=== PATIENT | male | born 1965 | race Caucasian/White ===

== ENCOUNTER 2021-10-09 17:28 | Inpatient (IN) ==
[2021-10-09] MEDS ORDERED: 0.9 % Sodium Chloride 1,000 ML IVC ONE (18:08)
[2021-10-09] MEDS ORDERED: Ondansetron 4 MG/2 ML VIAL IVP ONE (18:08)
[2021-10-09 18:55] LABS: Basophils % 0.4 %; Hematocrit 47.1 % (37.5-50.1); Hemoglobin 15.9 g/dL (12.9-16.9); Immature Granulocytes % 0.8 % (0-4); Lymphocytes # 1.1 K/mcL (0.6-4.6); Lymphocytes % 11.2 %; Mean Corpuscular HGB Conc 33.8 g/dL (31.6-35.5); Mean Corpuscular Hemoglobin 30.2 pg (28.0-33.3); Mean Corpuscular Volume 89.4 fL (83.0-100.0); Mean Platelet Volume 9.1 fL (9.4-12.4); Monocytes # 0.6 K/mcL (0.0-1.3); Neutrophils # 7.9 K/mcL (1.6-8.9); Platelet Count 441 K/mcL (140-400); Red Blood Count 5.27 M/mcL (4.19-5.50); Red Cell Distribution Width 12.5 % (11.5-14.5); Segmented Neutrophils % 81.6 %; White Blood Count 9.6 K/mcL (4.3-11.1)
[2021-10-09 19:05] LABS: Alanine Aminotransferase 16 Units/L (7-52); Albumin 4.2 g/dL (3.5-5.7); Albumin/Globulin Ratio 1.3 (1.1-2.2); Alkaline Phosphatase 113 Units/L (34-104); Aspartate Amino Transferase 14 Units/L (13-39); BUN/Creatinine Ratio 11 (6-26); Bilirubin,Total 0.4 mg/dL (0.3-1.0); Blood Urea Nitrogen 16 mg/dL (6-20); Calcium 9.2 mg/dL (8.6-10.3); Carbon Dioxide 9 mEq/L (23-29); Chloride 95 mEq/L (98-107); Globulin 3.2 g/dL (2.4-3.5); Glucose 286 mg/dL (70-105); Lipase < 3 Units/L (11-82); Osmolality,Calculated 280 (280-300); Potassium 4.8 mEq/L (3.5-5.1); Sodium 129 mEq/L (136-145); Total Protein 7.4 g/dL (6.4-8.9); eGFR For African Americans > 60 (> 60); eGFR For Non-African Americans 53 (> 60)
[2021-10-09 19:34] LABS: VBG HCO3 10 mEq/L (21-27); VBG PCO2 26 mmHg (41-51); VBG PO2 69 mmHg (25-50)
[2021-10-09 19:43] LABS: Magnesium 1.7 mg/dL (1.6-2.6); Phosphorous 2.7 mg/dL (2.7-4.5)
[2021-10-09] MEDS ORDERED: D5% in 0.45% NACL w KCl 20 MEQ/1,000 ML MLS IVC PRN (19:44)
[2021-10-09] MEDS: 0.9 % Sodium Chloride 1,000 ML IVC SCH ×2 (19:51→21:00)
[2021-10-09] MEDS ORDERED: Ondansetron 4 MG/2 ML VIAL IVP PRN (19:55)
[2021-10-09] MEDS ORDERED: Acetaminophen 325 MG TABLET PO PRN (19:55)
[2021-10-09] MEDS ORDERED: Naloxone 0.4 MG/ML INJ IVP PRN (19:55)
[2021-10-09 20:20] LABS: Bilirubin,Urine Negative (Negative); Blood,Urine Negative (Negative); Clarity,Urine Clear (Clear); Color,Urine Colorless (Yellow); Glucose,Urine (UA) >=1000 mg/dL (Normal); Ketones,Urine >150 mg/dL (Negative); Leukocyte Esterase,Urine Negative (Negative); Nitrite,Urine Negative (Negative); PH,Urine 5.5 pH Units (5.0-8.0); Protein,Urine 30 mg/dL (Neg-Trace); RBC,Urine 0-3 per hpf (0-3); Specific Gravity,Urine 1.025 (1.010-1.025); Squamous Epithelial Cell,Urine Few per hpf (None-Few); Urobilinogen,Urine Normal (Normal); WBC,Urine 0-3 per hpf (0-3)
[2021-10-09] MEDS ORDERED: Ipratropium/Albuterol Neb 3 ML IH PRN (21:29)
[2021-10-09] MEDS ORDERED: *HR* Promethazine 25 MG/ML VIAL IM ONE (22:10)
[2021-10-09 22:19] LABS: BUN/Creatinine Ratio 12 (6-26); Blood Urea Nitrogen 14 mg/dL (6-20); Calcium 7.9 mg/dL (8.6-10.3); Carbon Dioxide 10 mEq/L (23-29); Chloride 105 mEq/L (98-107); Glucose 186 mg/dL (70-105); Osmolality,Calculated 283 (280-300); Potassium 4.5 mEq/L (3.5-5.1); Sodium 134 mEq/L (136-145); eGFR For African Americans > 60 (> 60); eGFR For Non-African Americans > 60 (> 60)
[2021-10-09] MEDS: Azithromycin 500 MG in 0.9 % Sodium Chloride 250 ML IVPB SCH (22:26)
[2021-10-09] MEDS: cefTRIAXone 1,000 MG in 0.9 % Sodium Chloride Mini Bag 100 ML IVPB SCH (22:27)
[2021-10-09] MEDS: *HR* Heparin 5,000 UNIT/ML VIAL SQ SCH (22:28)
[2021-10-09 22:44] LABS: Estimated Average Glucose 243 mg/dl; Hemoglobin A1C 10.1 %
[2021-10-10] MEDS: *HR* Dextrose 50 % in Water (Syg) 50 ML SYRINGE IVP PRN ×2 (00:03→08:18)
[2021-10-10] MEDS: D5% in 0.9% NACL 1,000 ML IVC SCH ×2 (00:27→12:11)
[2021-10-10 04:18] LABS: Basophils % 0.1 %; Hematocrit 38.2 % (37.5-50.1); Hemoglobin 13.3 g/dL (12.9-16.9); Lymphocytes % 13.7 %; Mean Corpuscular HGB Conc 34.8 g/dL (31.6-35.5); Monocytes # 0.9 K/mcL (0.0-1.3); Monocytes % 12.1 %; Neutrophils # 5.4 K/mcL (1.6-8.9); Platelet Count 362 K/mcL (140-400); Red Blood Count 4.29 M/mcL (4.19-5.50); Red Cell Distribution Width 12.6 % (11.5-14.5); Segmented Neutrophils % 73.1 %; White Blood Count 7.4 K/mcL (4.3-11.1)
[2021-10-10 04:27] LABS: Prothrombin Time 10.8 Seconds (9.4-12.1)
[2021-10-10 04:41] LABS: BUN/Creatinine Ratio 13 (6-26); Blood Urea Nitrogen 13 mg/dL (6-20); C-Reactive Protein < 5 mg/L (Less than 10); Calcium 8.3 mg/dL (8.6-10.3); Carbon Dioxide 17 mEq/L (23-29); Chloride 108 mEq/L (98-107); Chol/HDL Ratio 3.6 (0-4.9); Cholesterol 121 mg/dL (< 200); Glucose 72 mg/dL (70-105); HDL Cholesterol 34 mg/dL (40-59); LDL Cholesterol,Calculated 64 mg/dL (< 100); Magnesium 1.7 mg/dL (1.6-2.6); Osmolality,Calculated 287 (280-300); Potassium 3.6 mEq/L (3.5-5.1); Sodium 139 mEq/L (136-145); Triglycerides 114 mg/dL (< 150); eGFR For African Americans > 60 (> 60); eGFR For Non-African Americans > 60 (> 60)
[2021-10-10 04:51] LABS: Ferritin 176 ng/mL (20-250); Thyroid Stimulating Hormone 4.282 mcIU/mL (0.340-5.600)
[2021-10-10] MEDS ORDERED: Potassium Phosphate 44 MEQ in 0.9 % Sodium Chloride 250 ML IVPB ONE (05:23)
[2021-10-10] MEDS: *HR* Heparin 5,000 UNIT/ML VIAL SQ SCH ×3 (06:42→22:04)
[2021-10-10] MEDS ORDERED: *HR* Dextrose 50 % in Water (Syg) 50 ML SYRINGE ONE (08:09)
[2021-10-10] MEDS: cefTRIAXone 1,000 MG in 0.9 % Sodium Chloride Mini Bag 100 ML IVPB SCH (08:19)
[2021-10-10] MEDS: Azithromycin 500 MG in 0.9 % Sodium Chloride 250 ML IVPB SCH (08:21)
[2021-10-10 12:37] LABS: VBG HCO3 21 mEq/L (21-27); VBG PCO2 38 mmHg (41-51); VBG PH 7.36 pH Units (7.32-7.42); VBG PO2 190 mmHg (25-50)
[2021-10-10 12:52] LABS: BUN/Creatinine Ratio 11 (6-26); Blood Urea Nitrogen 10 mg/dL (6-20); Calcium 8.3 mg/dL (8.6-10.3); Carbon Dioxide 19 mEq/L (23-29); Chloride 107 mEq/L (98-107); Glucose 127 mg/dL (70-105); Osmolality,Calculated 289 (280-300); Phosphorous 2.8 mg/dL (2.7-4.5); Potassium 3.9 mEq/L (3.5-5.1); Sodium 139 mEq/L (136-145); eGFR For African Americans > 60 (> 60); eGFR For Non-African Americans > 60 (> 60)
[2021-10-10] MEDS ORDERED: *HR* Dextrose 50 % in Water (Syg) 50 ML SYRINGE IVP PRN (13:15)
[2021-10-10] MEDS ORDERED: Dextrose Gel 15 GM/37.5 ML TUBE PO PRN ×2 (13:15)
[2021-10-10] MEDS ORDERED: D5% in Water 1,000 ML IVC PRN (13:15)
[2021-10-10 13:26] LABS: Adenovirus Not Detected (Not Detect); Bordetella Pertussis Not Detected (Not Detect); Chlamydophila pneumoniae Not Detected (Not Detect); Coronavirus 229E Not Detected (Not Detect); Coronavirus HKU1 Not Detected (Not Detect); Coronavirus NL63 Not Detected (Not Detect); Coronavirus OC43 Not Detected (Not Detect); Human Metapneumovirus Not Detected (Not Detect); Human Rhinovirus/Enterovirus Not Detected (Not Detect); Influenza A Subtype 2009 H1 Not Detected (Not Detect); Influenza B Not Detected (Not Detect); Mycoplasma pneumoniae Not Detected (Not Detect); Parainfluenza Virus 1 Not Detected (Not Detect); Parainfluenza Virus 2 Not Detected (Not Detect); Parainfluenza Virus 3 Not Detected (Not Detect); Parainfluenza Virus 4 Not Detected (Not Detect); Respiratory Syncytial Virus Not Detected (Not Detect)
[2021-10-10 13:28] LABS: SARS-CoV-2 DETECTED (Not Detect)
[2021-10-10] MEDS: Insulin DETEMIR 100 UNIT/ML X5UNITS SUBQ SCH ×2 (15:36→22:03)
[2021-10-10] MEDS: Insulin LISPRO 300 UNITS/3 ML VIAL SUBQ SCH (16:53)
[2021-10-10] MEDS ORDERED: Insulin LISPRO 300 UNITS/3 ML VIAL SUBQ SCH (17:00)
[2021-10-11 05:36] LABS: VBG HCO3 28 mEq/L (21-27); VBG PCO2 41 mmHg (41-51); VBG PH 7.44 pH Units (7.32-7.42); VBG PO2 189 mmHg (25-50)
[2021-10-11 05:46] LABS: BUN/Creatinine Ratio 8 (6-26); Blood Urea Nitrogen 7 mg/dL (6-20); Calcium 8.4 mg/dL (8.6-10.3); Carbon Dioxide 27 mEq/L (23-29); Chloride 103 mEq/L (98-107); Glucose 94 mg/dL (70-105); Magnesium 1.4 mg/dL (1.6-2.6); Osmolality,Calculated 282 (280-300); Potassium 3.2 mEq/L (3.5-5.1); Sodium 137 mEq/L (136-145); eGFR For African Americans > 60 (> 60); eGFR For Non-African Americans > 60 (> 60)
[2021-10-11] MEDS: *HR* Heparin 5,000 UNIT/ML VIAL SQ SCH (05:51)
[2021-10-11] MEDS ORDERED: Potassium Phosphate 44 MEQ in 0.9 % Sodium Chloride 250 ML IVPB ONE (07:22)
[2021-10-11] MEDS: Insulin LISPRO 300 UNITS/3 ML VIAL SUBQ SCH ×2 (07:28→11:44)
[2021-10-11] MEDS: cefTRIAXone 1,000 MG in 0.9 % Sodium Chloride Mini Bag 100 ML IVPB SCH (07:29)
[2021-10-11] MEDS: Azithromycin 500 MG in 0.9 % Sodium Chloride 250 ML IVPB SCH (07:30)
[2021-10-11] MEDS ORDERED: Insulin LISPRO 300 UNITS/3 ML VIAL SUBQ SCH (08:00)
[2021-10-11] MEDS ORDERED: 0.9 % Sodium Chloride 500 ML IVC ONE (08:48)
[2021-10-11] MEDS ORDERED: lisinopriL 5 MG TABLET PO SCH (09:00)
[2021-10-11] MEDS ORDERED: Metoprolol XL (24 HR) Succ 50 MG TAB.ER.24H PO SCH (09:15)
[2021-10-11 11:04] VITALS: BP 152/65; PULSE 96; TEMP 97.3; O2SAT 95
[2021-10-11] MEDS ORDERED: Insulin DETEMIR 100 UNIT/ML X5UNITS SUBQ SCH (21:00)
== END 2021-10-11 14:00 | disposition home or self-care (01) | DRG 177 ==
LOC: EMEROOARM 17:28 → SUATTDRO 21:20 → 2NENU 21:20
PROVIDERS: ADMIT Internal Medicine; ATTEND Internal Medicine